=== PATIENT | female | born 1990 | race Caucasian/White ===

== ENCOUNTER 2018-04-10 16:12 | Outpatient (CLI) | payer MEDICAID ==
[~2018-04-10] VITALS: Ht 154.9 cm; Wt 117.3 kg
[2018-04-10 17:00] VITALS: BP 109/76; PULSE 129; TEMP 98.1
[2018-04-10 17:28] VITALS: BP 114/79; PULSE 106
== END 2018-04-10 17:40 ==
LOC: LDRO 16:12 → LDR 16:25 → LDRO 17:40
DX: O62.9 Abnormality of forces of labor, unspecified (principal); Z3A.38 38 weeks gestation of pregnancy
CPT/HCPCS: OP

== ENCOUNTER 2018-04-18 06:20 | Inpatient (IN) | payer MEDICAID ==
[2018-04-18] VITALS (57 sets, daily range): BP systolic 87–149; BP diastolic 42–88; PULSE 74–114; TEMP 97.6–98.2
[~2018-04-18] VITALS: Ht 154.9 cm; Wt 118.6 kg
[2018-04-18 08:22] LABS: BASO % 0.3 % (0.0-2.0); EOS # 0.2 (0.0-0.7); EOS % 1.4 % (0-4.0); GRAN % 72.9 % (42.2-75.2); HEMATOCRIT 36.1 % (37.0-47.0); HEMOGLOBIN 12.1 g/dl (12.5-16.0); LYMPH # 1.9 (1.2-3.4); LYMPH % 17.6 % (20.0-51.0); MEAN CELL VOLUME 84 fl (80.0-100.0); MEAN CORPUSCULAR HEMOGLOBIN 28 pg (27.0-31.0); MEAN CORPUSCULAR HGB CONC 34 g/dl (33.0-37.0); MEAN PLATELET VOLUME 9.9 fl (7.4-10.4); MONO # 0.8 (0.1-0.6); MONO % 7.3 % (1.7-9.3); PLATELET COUNT 270 K/mm3 (130-400); REDCELL DISTRIBUTION WIDTH-CV 13.5 % (11.5-14.5)
[2018-04-18 09:35] LABS: TRICYCLIC ANTIDEPRESS URINE NEGATIVE
[2018-04-19 04:30] VITALS: BP 88/54; PULSE 82; TEMP 98.3
[2018-04-19 07:23] LABS: HEMOGLOBIN 11.7 g/dl (12.5-16.0)
[2018-04-19 09:27] VITALS: BP 124/76; PULSE 84
[2018-04-19] MEDS ORDERED: MOTRIN 600600 MG/TAB PO (11:18)
[2018-04-19 16:20] VITALS: BP 110/63; PULSE 81; TEMP 98
[2018-04-19 22:50] VITALS: BP 104/52; PULSE 79; TEMP 97.6
[2018-04-20 08:35] VITALS: BP 98/47; PULSE 72; TEMP 98.5
== END 2018-04-20 12:09 | disposition home or self-care (01) | DRG 807 ==
LOC: LDR → OB 07:11 → LDR 07:11 → OB 04-19 00:10
PROVIDERS: Obstetrics & Gynecology
PROC: 10E0XZZ Delivery of Products of Conception, External Approach (ICD-10-PCS; principal; 2018-04-18)
PROC: 3E033VJ Introduction of Other Hormone into Peripheral Vein, Percutaneous Approach (ICD-10-PCS; 2018-04-18)
PROC: 10907ZC Drainage of Amniotic Fluid, Therapeutic from Products of Conception, Via Natural or Artificial Opening (ICD-10-PCS; 2018-04-18)
PROC: 0HQ9XZZ Repair Perineum Skin, External Approach (ICD-10-PCS; 2018-04-18)
DX: O70.0 First degree perineal laceration during delivery (principal); Z37.0 Single live birth; O99.214 Obesity complicating childbirth; Z3A.39 39 weeks gestation of pregnancy; O99.344 Other mental disorders complicating childbirth; F41.8 Other specified anxiety disorders; O99.334 Smoking (tobacco) complicating childbirth; O99.824 Streptococcus B carrier state complicating childbirth
CPT/HCPCS: J2405; J2540; J2590; J2795; J7120